=== PATIENT | female | born 1965 | race Caucasian/White ===

== ENCOUNTER 2017-12-16 10:41 | Day surgery (SDC) | payer MEDICAID ==
[2017-12-16] MEDS ORDERED: Sodium Chloride 0.9% 1,000 ML IV SCH (12:00)
[2017-12-16] MEDS ORDERED: fentaNYL 100 MCG/2 ML SDV ONE (13:08)
[2017-12-16] MEDS ORDERED: Midazolam 1 MG/ML 2 ML SDV ONE (13:08)
[2017-12-16] MEDS ORDERED: Propofol 200 MG/20 ML SDV ONE (13:08)
[2017-12-16 14:35] VITALS: BP 129/72
--- NOTE | 2017-12-17 06:41 | OR ---
DATE OF PROCEDURE: 12/16/2017 PROCEDURE: Colonoscopy. FINDINGS: 1. Ascending colon polyp #1, approximately 5 mm, completely removed using cold biopsy forceps. 2. Ascending colon polyp #2, approximately 5 mm, completely removed using cold biopsy forceps. 3. Descending colon polyp at approximately 20 mm, approximately 5 mm, completely removed using cold biopsy forceps. COMPLICATIONS: None. SENIOR ACTUARIAL ANALYST: None. PREOPERATIVE DIAGNOSIS: History of colon polyps. POSTOPERATIVE DIAGNOSIS: History of colon polyps. RISKS: Risks, benefits, alternatives, and limitations including, but not limited to infection, bleeding, and perforation were explained to the patient, who wished to proceed. PROCEDURE IN DETAIL: The patient was placed in left lateral decubitus position. Digital rectal exam was performed without abnormality. The scope was introduced and advanced atraumatically to the ileocecal valve. The scope was brought back to the ascending, transverse, descending colon, and retroflexed. The aforementioned polyps were identified and completely removed. No other abnormalities. No old or new blood. No abnormalities on retroflexion. The patient tolerated the procedure well. García William MD /[id number]
== END 2017-12-16 14:36 | disposition home or self-care (01) ==
LOC: JP.SDS 10:41
PROVIDERS: ATTEND Surgery
DX: Z12.11 Encounter for screening for malignant neoplasm of colon (principal); D12.2 Benign neoplasm of ascending colon; D12.4 Benign neoplasm of descending colon; F17.200 Nicotine dependence, unspecified, uncomplicated
CPT/HCPCS: 45380; 88305; J2250; J2704; J3010; J7030

== ENCOUNTER 2019-06-20 18:48 | Emergency (ER) | payer MEDICAID ==
[2019-06-20 19:47] VITALS: BP 147/93; PULSE 93
--- NOTE | 2019-06-20 19:57 | EDM.PDOC ---
ED HPI GENERAL MEDICAL PROBLEM - General Chief Complaint: Neuro Symptoms/Deficits Stated Complaint: WEAK,DIZZY Time Seen by Provider: 06/20/19 19:40 Source of Information: Reports: Patient History Limitations: Reports: No Limitations - History of Present Illness INITIAL COMMENTS - FREE TEXT/NARRATIVE: This is a 53-year-old female who presents with concerns of fatigue. She reports she has felt generalized fatigue today at home. Symptoms are actually improving. She has a history of a seizure disorder and is questioning whether her Keppra level is low and causing her symptoms. She has no fevers. She has no cough. She has no dyspnea. Treatments ATOMIC PROCESS ENGINEER: Reports: Other (see below) Other Treatments ATOMIC PROCESS ENGINEER: none - Related Data Allergies Allergy/AdvReac Type Severity Reaction Status Date / Time naproxen [From Naprosyn] Allergy Intermediate Numbness Verified 06/20/19 19:02 Home Meds: Home Meds levETIRAcetam [Levetiracetam] 1,500 mg PO BID 09/07/13 [History] Calcium/Magnesium/Vit D3 [Calcium 500 MG] 1 tab PO DAILY 12/20/15 [History] Loperamide HCl [Loperamide] 2 mg PO QID PRN 12/15/17 [History] Past Medical History HEENT History: Reports: Other (See Below) Other HEENT History: AVM surgery 1998 Cardiovascular History: Reports: High Cholesterol Gastrointestinal History: Reports: None FENDER MECHANIC APPRENTICE History: Reports: , Other (See Below) Other FENDER MECHANIC APPRENTICE History: hysterectomy Neurological History: Reports: Seizure, Other (See Below) Other Neuro History: AVM surgery 1998 Endocrine/Metabolic History: Reports: Other (See Below) Other Endocrine/Metabolic History: borderline db - Infectious Disease History Infectious Disease History: Reports: Chicken Pox - Past Surgical History Head Surgeries/Procedures: Reports: Other (See Below) HEENT Surgical History: Reports: Other (See Below) Cardiovascular Surgical History: Reports: None Female Surgical History: Reports: Hysterectomy Social & Family History - Family History Respiratory: Reports: COPD - Tobacco Use Smoking Status *Q: Current Every Day Smoker Years of Tobacco use: 36 Packs/Tins Daily: 0.5 Second Hand Smoke Exposure: Yes - Caffeine Use Caffeine Use: Reports: Coffee - Recreational Drug Use Recreational Drug Use: No ED ROS GENERAL - Review of Systems Review Of Systems: See Below Constitutional: Reports: Fatigue HEENT: Reports: No Symptoms Respiratory: Reports: No Symptoms Cardiovascular: Reports: No Symptoms Endocrine: Reports: No Symptoms GI/Abdominal: Reports: No Symptoms : Reports: No Symptoms Musculoskeletal: Reports: No Symptoms Skin: Reports: No Symptoms Neurological: Reports: No Symptoms Psychiatric: Reports: No Symptoms Hematologic/Lymphatic: Reports: No Symptoms Immunologic: Reports: No Symptoms ED EXAM, NEURO - Physical Exam Exam: See Below Exam Limited By: No Limitations General Appearance: Alert, No Apparent Distress Ears: Normal External Exam Nose: Normal Inspection Throat/Mouth: Normal Inspection Head Exam: Atraumatic, Normocephalic Respiratory/Chest: Lungs Clear Cardiovascular: Regular Rate, Rhythm GI/Abdominal: Soft, Non-Tender (Female) Exam: Normal External Exam Rectal (Female) Exam: Normal Exam Neurological: Alert, Normal Mood/Affect, CN II-XII Intact, Other (Speech is fluid. She does have left-sided pronator drift. Lower extremity strength is 5/ 5 and symmetric.) Back Exam: Normal Inspection Extremities: Normal Inspection Psychiatric: Normal Mood Skin Exam: Warm, Dry Course - Vital Signs Last Recorded V/S: Last Vital Signs Temp 36.4 C 06/20/19 19:00 Pulse 93 06/20/19 19:46 Resp 14 06/20/19 19:00 BP 147/93 H 06/20/19 19:46 Pulse Ox 97 06/20/19 19:46 - Re-Assessments/Exams Free Text/Narrative Re-Assessment/Exam: 53-year-old presents with generalized fatigue. Symptoms have started to improve since she has been in the emergency room. On exam showed normal vital signs. She does have some left-sided pronator drift , but she had a prior stroke and reports this is her baseline. She is concerned that perhaps her Keppra level was low, we discussed this is typically not a side effect of low Keppra level. Her symptoms are now improved anyway, so we will forego any testing. She is safe for discharge. She will return for worsening or any new focal neurologic symptoms. 06/20/19 20:03 Departure - Departure Time of Disposition: 19:57 Disposition: Home, Self-Care 01 Clinical Impression: Fatigue Qualifiers: Fatigue type: other Qualified Code(s): R53.83 - Other fatigue - Discharge Information Referrals: Shine Grigsby MD [Primary Care Provider] - Forms: ED Department Discharge Additional Instructions: Please continue to monitor your symptoms at home. Return to the ER for symptoms such as seizure or new extremity weakness as discussed Sepsis Event Note - Evaluation Sepsis Screening Result: No Definite Risk - Focused Exam Vital Signs: Vital Signs Temp Pulse Resp BP Pulse Ox 06/20/19 19:46 93 147/93 H 97 06/20/19 19:00 36.4 C 95 14 174/82 H 99 06/20/19 18:54 36.4 C 96 16 163/85 H 99 Date Exam was Performed: 06/20/19 Time Exam was Performed: 19:58
== END 2019-06-20 20:00 | disposition home or self-care (01) ==
LOC: JP.ED 18:48
DX: R53.83 Other fatigue (principal); R56.9 Unspecified convulsions; F17.210 Nicotine dependence, cigarettes, uncomplicated; Z79.899 Other long term (current) drug therapy
CPT/HCPCS: 99283

== ENCOUNTER 2021-01-21 09:05 | Day surgery (SDC) | payer MEDICAID ==
[~2021-01-21 09:05] MED LIST: Midazolam 1 MG/ML 2 ML SDV ONE; Propofol 200 MG/20 ML SDV ONE; fentaNYL 100 MCG/2 ML SDV ONE
[2021-01-21] MEDS ORDERED: Sodium Chloride 0.9% 1,000 ML IV SCH (09:45)
[2021-01-21] MEDS ORDERED: Lidocaine 1% 2 ML ONE (11:13)
[2021-01-21] MEDS ORDERED: Propofol 200 MG/20 ML SDV ONE (11:18)
[2021-01-21 12:37] VITALS: BP 150/83; PULSE 77
--- NOTE | 2021-01-21 14:03 | OR ---
DATE OF PROCEDURE: 01/21/2021 SURGEON: García William MD PROCEDURE: Colonoscopy. FINDINGS: 1. Ascending colon polyp, approximately 5 mm, completely removed using hot snare wire device. 2. Ascending colon polyp #2, approximately 8 mm, completely removed using hot snare wire device. 3. Transverse colon polyp #1, approximately 5 mm, completely removed using hot snare wire device. 4. Sigmoid colon polyp #1, approximately 9 mm, completely removed using hot snare wire device. 5. Sigmoid colon polyp #2, approximately 5 mm, completely removed using hot snare wire device. COMPLICATION: None. INSTITUTIONAL RESEARCH DIRECTOR: None. ANESTHESIA: MAC. PREOPERATIVE DIAGNOSIS: History of colon polyps. POSTOPERATIVE DIAGNOSIS: History of colon polyps. RISKS: Risks, benefits, alternatives, and limitations including, but not limited to, infection, bleeding, perforation, false positives and false negatives were explained to the patient and she wished to proceed. PROCEDURE IN DETAIL: The patient was placed in the left lateral decubitus position. Digital rectal exam was performed without abnormality. Scope was introduced and advanced atraumatically to the ileocecal valve. The aforementioned polyps were all identified and completely removed. No abnormal bleeding was noted after removal. Greater than 8 minutes was spent removing the scope. The prep was acceptable, approximately 90% luminal surface could be seen. No abnormalities on retroflexion. The patient tolerated the procedure well. García William MD /[id number]
== END 2021-01-21 13:00 | disposition home or self-care (01) ==
LOC: JP.SDS 09:05
PROVIDERS: ATTEND Surgery
DX: Z12.11 Encounter for screening for malignant neoplasm of colon (principal); D12.2 Benign neoplasm of ascending colon; D12.3 Benign neoplasm of transverse colon; D12.5 Benign neoplasm of sigmoid colon; E78.5 Hyperlipidemia, unspecified; R73.03 Prediabetes; Z88.8 Allergy status to other drugs, medicaments and biological substances
CPT/HCPCS: 45385; J2250; J2704; J3010; J7030; 88305

== ENCOUNTER 2023-01-21 08:16 | Day surgery (SDC) | payer MEDICAID ==
[~2023-01-21 08:16] MED LIST changes: -fentaNYL 100 MCG/2 ML SDV ONE; +fentaNYL 50 MCG/ML SDV ONE
[2023-01-21] MEDS ORDERED: Sodium Chloride 0.9% 1,000 ML IV SCH (09:00)
[2023-01-21 11:46] VITALS: BP 168/76; PULSE 77
== END 2023-01-21 11:55 | disposition home or self-care (01) ==
LOC: JP.SDS 08:16
PROVIDERS: ATTEND Surgery
DX: Z12.11 Encounter for screening for malignant neoplasm of colon (principal); D12.4 Benign neoplasm of descending colon; E78.00 Pure hypercholesterolemia, unspecified; E11.9 Type 2 diabetes mellitus without complications; F17.200 Nicotine dependence, unspecified, uncomplicated; Z86.69 Personal history of other diseases of the nervous system and sense organs; Z88.8 Allergy status to other drugs, medicaments and biological substances
CPT/HCPCS: 45380; 88305; J2250; J2704; J3010; J7030